=== PATIENT | female | born 1950 | race Caucasian/White ===

== ENCOUNTER 2020-03-21 07:38 | Outpatient (CLI) | payer MEDICARE, OTHER, SELFPAY ==
[2020-03-25 16:41] LABS: SARS-CoV-2 RNA Undetected (Undetected); SARS-CoV-2 Specimen Source Nasopharynx
== END 2020-03-21 07:58 ==
PROVIDERS: PCP Family Medicine; Visit Provider Obstetrics & Gynecology Gynecology
DX: Z11.59 Encounter for screening for other viral diseases (principal)
CPT/HCPCS: U0003

== ENCOUNTER 2021-03-19 03:26 | Outpatient (CLI) | payer MEDICARE, OTHER, SELFPAY ==
[2021-03-19 13:28] LABS: Abs Immature Grans 0.01 10^3/uL (0.0-0.06); Absolute Basophil Count 0.07 10^3/uL (0.0-0.2); Absolute Eosinophil Count 0.09 10^3/uL (0.0-0.7); Absolute Lymphocyte Count 2.04 10^3/uL (1.2-3.4); Absolute Monocyte Count 0.42 10^3/uL (0.1-0.8); Absolute Neutrophil Count 3.84 10^3/uL (1.2-6.7); Basophils % 1.1; Eosinophils % 1.4; HCT 42.3 % (36.0-46.0); Immature Grans % 0.2; Lymphocytes % 31.5; MCH 30.7 pg (27.0-33.0); MCHC 33.1 % (32.0-36.0); MCV 92.8 fL (80-95); MPV 9.4 fL (8.0-11.0); Monocytes % 6.5; Neutrophils % 59.3; Nucleated RBC 0 %; Platelet Count 238 10^3/uL (130-400); RBC 4.56 10^6/uL (3.93-5.22); RDW 12.2 % (11.7-14.6); WBC 6.47 10^3/uL (4.4-10.8)
[2021-03-19 13:40] LABS: ALT 20 U/L (14-59); AST 12 U/L (15-37); Albumin 3.9 g/dL (3.4-5.0); Alkaline Phosphatase 39 U/L (46-116); Anion Gap 6.9 mmol/L (3-11); BUN 18 mg/dL (7-18); Bilirubin, Total 0.3 mg/dL (0.2-1.0); CO2 30.1 mmol/L (21.0-32.0); CREATININE 0.8 mg/dL (0.55-1.02); Calcium 9.1 mg/dL (8.5-10.1); Chloride 105 mmol/L (98-107); Glucose 94 mg/dL (74-106); Sodium 142 mmol/L (136-145); Total Protein 7.1 g/dL (6.4-8.2)
== END 2021-03-19 03:27 | disposition home or self-care (01) ==
LOC: LBO 03:26
PROVIDERS: PCP Family Medicine; Visit Provider Internal Medicine Hematology & Oncology
DX: M31.1 Thrombotic microangiopathy (principal)
CPT/HCPCS: 36415; 80053; 85025

== ENCOUNTER 2025-05-17 18:09 | Outpatient (REF) | payer MEDICARE, SELFPAY ==
--- NOTE | 2025-05-17 09:30 | SKI_PTH ---
PATIENT: Rebekah Davidson LOC: [facility] U#:[id number] AGE/SX: 75/F ROOM: RE05/17/[address]: Stuart Bernard DO : 1950 BED: DIS: 05/17/2025 SPEC #: [id number] RECD: 05/17/25 18:25 STATUS: CLAY REQ #: [id number] ALBERTO: 05/17/25 09:[address]: Stuart Bernard DEPT: Surgical Specimen RECD BY: Karina Taylor ENTERED: 05/17/25 18:26 SP TYPE: SKI FILIBERTO DR: Ever Lyle I Tissues: 1 - SKIN BIOPSY(SHAVE/PUNCH) 2 - SKIN BIOPSY(SHAVE/PUNCH) Procedures: SKIN LEVEL 4 Comments: [id number]
== END 2025-05-17 18:10 | disposition home or self-care (01) ==
LOC: LBN 18:09
PROVIDERS: PCP Family Medicine; Visit Provider Otolaryngology Otolaryngology/Facial Plastic Surgery
DX: C44.729 Squamous cell carcinoma of skin of left lower limb, including hip (principal); L81.9 Disorder of pigmentation, unspecified
CPT/HCPCS: 88305